=== PATIENT | male | born 1980 | race Hispanic/Latino ===

== ENCOUNTER 2019-04-17 14:19 | Emergency (ER) | payer OTHER ==
[~2019-04-17] VITALS: Ht 175.3 cm; Wt 102.1 kg
[2019-04-17] MEDS ORDERED: HYDROCODONE/APAP 10MG-325MG TAB PO ONE (15:30)
--- NOTE | 2019-04-17 16:28 | Diagnostic Imaging Report ---
FINGER LEFT - 3 views HISTORY: Pain. Cut finger with a saw. Partial amputation of the left second finger tip. COMPARISON: None available. FINDINGS: Bones: No acute displaced fracture. Osseous alignment is within normal limits. Joints: The joint spaces are well-maintained. Soft tissues: Soft tissue defect at the tip of the second digit. The defect is close to the bony phalanx without underlying bony injury. IMPRESSION: Soft tissue defect at the tip of the second digit. The defect is close to the bony phalanx without underlying bony injury. Signed by: Dr. Kwasi Parry M.D. on 04/17/2019 4:25 PM
== END 2019-04-17 17:14 | disposition home or self-care (01) ==
LOC: ER 14:19
DX: S68.121A Partial traumatic metacarpophalangeal amputation of left index finger, initial encounter (principal); W29.3XXA Contact with powered garden and outdoor hand tools and machinery, initial encounter; Y92.008 Other place in unspecified non-institutional (private) residence as the place of occurrence of the external cause
CPT/HCPCS: 99283